=== PATIENT | female | born 1990 | race Two or more races ===

== ENCOUNTER 2017-06-12 12:32 | Emergency (ER) | payer MEDICAID, OTHER ==
--- NOTE | 2017-06-12 13:09 | EDPHY ---
H & P Stated Complaint: 6 wks HCG, Abd pain Time Seen by Provider: 06/12/17 12:57 HPI/ROS: CHIEF COMPLAINT: , vaginal bleeding and cramping HISTORY OF PRESENT ILLNESS: 26-year-old female SAB1, with last menstrual period 03/30/2017, currently , followed by [facility] complaining of suprapubic cramping and vaginal spotting and passage of clots since this morning. No back or flank pain. No nausea or vomiting. No fever or chills. No trauma. No urinary abnormality. No flu-like symptoms. No dizziness. PRIMARY CARE PROVIDER: [facility] REVIEW OF SYSTEMS: A ten point review of systems was performed and is negative with the exception of the items mentioned in the HPI PAST MEDICAL & SURGICAL HISTORY: SAB1. No IVF history. SOCIAL HISTORY: Nonsmoker PHYSICAL EXAM (Prior to examination, patient consented to physical exam, hands were washed and my usual and customary physical exam procedures followed) 1) GENERAL: Well-developed, well-nourished, alert and oriented. Appears to be in no acute distress. Appears comfortable. Smiling, shakes my hand 2) HEAD: Normocephalic, atraumatic 3) HEENT: Pupils equal, round, reactive to light bilaterally. Sclera anicteric. Nasopharynx, oropharynx, clear, no lesions. 4) NECK: Full range of motion, no meningeal signs. 5) LUNGS: Clear auscultation bilaterally, no wheezes, no rhonchi, no retractions. 6) HEART: Regular rate and rhythm, no murmur, no heave, no gallop. 7) ABDOMEN: No guarding, no rebound, no focal tenderness, negative McBurney's, negative Wallace's, negative Rovsing's, negative peritoneal sign, unable to elicit any abdominal pain on exam. 8) MUSCULOSKELETAL: Moving all extremities, no focal areas of tenderness, no obvious trauma. No peripheral edema or discoloration. 9) BACK: No CVA tenderness, no midline vertebral tenderness, no fluctuance, no step-off, no obvious trauma, no visual or palpable abnormality. 10) SKIN: No rash, no petechiae. 11) Psychiatric: Patient is oriented X 3, there is no agitation. DIFFERENTIAL DIAGNOSIS: In no particular order including but not limited to ectopic , spontaneous , threatened - Personal History LMP (Females 10-55): Current Tetanus/Diphtheria Vaccine: Yes Current Tetanus Diphtheria and Acellular Pertussis (TDAP): Yes - Medical/Surgical History Hx Asthma: No Hx Chronic Respiratory Disease: No Hx Diabetes: No Hx Cardiac Disease: No Hx Renal Disease: No Hx Cirrhosis: No Hx Alcoholism: No Hx HIV/AIDS: No Hx Splenectomy or Spleen Trauma: No Other PMH: PMH: denies - Social History Smoking Status: Never smoked Constitutional: Initial Vital Signs Temperature (C) 37.1 C 06/12/17 12:42 Heart Rate 102 H 06/12/17 12:42 Respiratory Rate 20 06/12/17 12:42 Blood Pressure 120/74 06/12/17 12:42 O2 Sat (%) 98 06/12/17 12:42 Allergies/Adverse Reactions: No Known Allergies Allergy (Unverified 06/19/09 11:44) Home Medications: Medication Instructions Recorded Penicillin VK 06/12/17 Medical Decision Making - Diagnostics Imaging Results: Imaging Impressions Obstetrics Ultrasound 06/12/17 13:05 Impression: Heterogeneous thickening of the endometrium, possibly related to blood products, with no visible intrauterine . Correlation with serial hCG is recommended. Findings discussed with Des Leach PA-C, on June 12, 2017 at 1506. Images reviewed myself ED Course/Re-evaluation: 1:09 p.m.: Will obtain diagnostic studies including serum Rh, ultrasound, urinalysis. Patient currently hemodynamically stable. 1:44 p.m.: Rh positive noted Room 3:30 p.m.: Re-evaluation. Patient hemodynamically stable. Discussed her ultrasound showing no intrauterine . The patient can be discharged at this time with usual customary precautions. Recommended 2 [facility], repeat HCG. Definitely if she develops new or worsening pain, she develops dizziness or any other symptoms she needs to return to the ER for re-evaluation. She feels comfortable being discharged. All questions and concerns addressed by myself. Care of patient under supervision physician Dr Calderón. - Data Points Laboratory Results: Laboratory Results 06/12/17 12:50 06/12/17 12:50 06/12/17 06/12/17 06/12/17 14:27 13:17 12:50 WBC RBC Hgb Hct MCV MCH MCHC RDW Plt Count MPV Neut % (Auto) Lymph % (Auto) Creek % (Auto) Eos % (Auto) Baso % (Auto) Nucleat RBC Rel Count Absolute Neuts (auto) Absolute Lymphs (auto) Absolute Monos (auto) Absolute Eos (auto) Absolute Basos (auto) Absolute Nucleated RBC Immature Gran % Immature Gran # Sodium 141 mEq/L mEq/L (135-145) Potassium 3.7 mEq/L mEq/L (3.5-5.2) Chloride 104 mEq/L mEq/L (97-110) Carbon Dioxide 23 mEq/l mEq/l (22-31) Anion Gap 14 mEq/L mEq/L (8-16) BUN 5 mg/dL L mg/dL (7-23) Creatinine 0.6 mg/dL mg/dL (0.6-1.0) Estimated GFR > 60 Glucose 88 mg/dL mg/dL (70-100) Calcium 9.4 mg/dL mg/dL (8.5-10.4) Beta HCG, Quant 73495.00 mIU/mL H mIU/mL (0.00-4.83) Urine Color RED Urine Appearance TURBID Urine pH TNP Ur Specific [place] TNP Urine Protein TNP Urine Ketones TNP Urine Blood TNP Urine Nitrate TNP Urine Bilirubin TNP Urine Urobilinogen TNP Ur Leukocyte Esterase TNP Urine RBC 50-182 /hpf H /hpf (0-3) Urine WBC 25-50 /hpf H /hpf (0-3) Ur Epithelial Cells NONE SEEN /lpf /lpf (NONE-1+) Urine Mucus 3+ /lpf H /lpf (NONE-1+) Urine Glucose TNP Patient ABO/Rh A POSITIVE 06/12/17 12:50 WBC 9.25 10^3/uL 10^3/uL (3.80-9.50) RBC 4.67 10^6/uL 10^6/uL (4.18-5.33) Hgb 13.9 g/dL g/dL (12.6-16.3) Hct 41.2 % % (38.0-47.0) MCV 88.2 fL fL (81.5-99.8) MCH 29.8 pg pg (27.9-34.1) MCHC 33.7 g/dL g/dL (32.4-36.7) RDW 12.7 % % (11.5-15.2) Plt Count 278 10^3/uL 10^3/uL (150-400) MPV 9.9 fL fL (8.7-11.7) Neut % (Auto) 71.0 % % (39.3-74.2) Lymph % (Auto) 20.8 % % (15.0-45.0) Creek % (Auto) 7.0 % % (4.5-13.0) Eos % (Auto) 0.6 % % (0.6-7.6) Baso % (Auto) 0.2 % L % (0.3-1.7) Nucleat RBC Rel Count 0.0 % % (0.0-0.2) Absolute Neuts (auto) 6.56 10^3/uL H 10^3/uL (1.70-6.50) Absolute Lymphs (auto) 1.92 10^3/uL 10^3/uL (1.00-3.00) Absolute Monos (auto) 0.65 10^3/uL 10^3/uL (0.30-0.80) Absolute Eos (auto) 0.06 10^3/uL 10^3/uL (0.03-0.40) Absolute Basos (auto) 0.02 10^3/uL 10^3/uL (0.02-0.10) Absolute Nucleated RBC 0.00 10^3/uL 10^3/uL (0-0.01) Immature Gran % 0.4 % % (0.0-1.1) Immature Gran # 0.04 10^3/uL 10^3/uL (0.00-0.10) Sodium Potassium Chloride Carbon Dioxide Anion Gap BUN Creatinine Estimated GFR Glucose Calcium Beta HCG, Quant Urine Color Urine Appearance Urine pH Ur Specific [place] Urine Protein Urine Ketones Urine Blood Urine Nitrate Urine Bilirubin Urine Urobilinogen Ur Leukocyte Esterase Urine RBC Urine WBC Ur Epithelial Cells Urine Mucus Urine Glucose Patient ABO/Rh Medications Given: Discontinued Medications Morphine Sulfate (Morphine) 4 mg IVP EDNOW ONE Stop: 06/12/17 13:20 Last Admin: 06/12/17 13:23 Dose: 4 mg Departure - Departure Disposition: Home, Routine, Self-Care Clinical Impression: Threatened Condition: Good Instructions: Threatened Miscarriage (ED) Additional Instructions: Return to the ER if you develop new or worsening pain, if you develop fevers, if you develop back pain , if you develop dizziness, or any other symptoms that concern you. Referrals: Jaky Bailey MD [Primary Care Provider] - 06/14/17
[2017-06-12 13:19] LABS: PLATELET COUNT 278 10^3/uL (150-400)
[2017-06-12 15:44] VITALS: BP 109/77
== END 2017-06-12 15:43 | disposition home or self-care (01) ==
DX: O20.0 Threatened abortion (principal); Z3A.01 Less than 8 weeks gestation of pregnancy
CPT/HCPCS: 96374; J2270

== ENCOUNTER 2017-11-21 15:42 | Emergency (ER) | payer OTHER ==
--- NOTE | 2017-11-21 16:18 | EDPHY ---
H & P Time Seen by Provider: 11/21/17 16:03 HPI/ROS: HPI 6 weeks . Vaginal bleeding. 27-year-old female G5, P2, A2 at an estimated 6 weeks. Reports vaginal spotting starting 2 hr prior to arrival. She describes having some pelvic pressure but no pain. Denies any urinary complaints. No history of trauma. No fever. ROS: Constitutional: No fever, no chills. No weakness. Respiratory: No cough. No shortness of breath. Cardiac: No chest pain, no palpitations. Gastrointestinal: No abdominal pain, no vomiting, no diarrhea. As above. Genitourinary: No hematuria. No dysuria or increased frequency with urination. As above. No vaginal discharge. Musculoskeletal: No back pain. No neck pain. No myalgias or arthralgias. Skin: No rashes. Neurological: No headache. No focal weakness or altered sensation. Past medical history: 2 previous spontaneous abortions. Social history: Nonsmoker. Here by herself. No alcohol. Physical Exam: General Appearance: Alert, no distress. This patient is responding to questions appropriately and in full sentences. This patient appears well- hydrated and well-nourished. Eyes: Pupils equal and round no pallor or injection. No lid edema, erythema or injection. Respiratory: There are no retractions, lungs are clear to auscultation with good air movement bilaterally. Cardiovascular: Regular rate and rhythm. No murmur. Gastrointestinal: Abdomen is soft and nontender, no masses, bowel sounds normal. No focal tenderness at McBurney's point. No Wallace sign. Neurological: Motor sensory function is grossly intact. Cranial nerves are normal. Gait is normal. Skin: Warm and dry, no rashes. Musculoskeletal: No CVA tenderness on palpation bilaterally. Extremities are symmetrical. All joints range without pain or impingement. Psychiatric: No agitation. No depression. Database: EKG: Imaging: Pelvic ultrasound: The ovaries are unremarkable. There is a 6 week 3 day IUP heart rate 119. No free fluid noted. pole seen. Results were discussed with staff radiologist Dr. Des Nielson. Procedures: Emergency department course: Triage vital signs reviewed and are normal. Pelvic ultrasound to be obtained shortly. 5:00 p.m., the patient was re-evaluated. She has not had any vaginal bleeding while in the emergency department. Results of her ultrasound and emergency department workup and diagnosis of threatened miscarriage discussed with her. Her vital signs have been stable. She feels comfortable going home and I feel she is safe for discharge with precautions. Follow-up discussed with her in detail. Return to emergency department precautions reviewed. All of her questions were answered. She was discharged from the emergency department in good condition. Differential Diagnosis: The differential diagnosis on this patient includes but is not limited to threatened . Ectopic , completed unlikely. This represents a partial list of diagnoses considered. These considerations are based on history, physical exam, past history, reassessment and diagnostic testing. Smoking Status: Never smoked Constitutional: Initial Vital Signs Temperature (C) 37.2 C 11/21/17 16:00 Heart Rate 88 11/21/17 16:00 Respiratory Rate 16 11/21/17 16:00 Blood Pressure 114/75 11/21/17 16:00 O2 Sat (%) 99 11/21/17 16:00 O2 Delivery Mode Room Air Allergies/Adverse Reactions: No Known Allergies Allergy (Verified 11/21/17 16:00) Home Medications: Medication Instructions Recorded Penicillin VK 06/12/17 Medical Decision Making - Data Points Laboratory Results: Laboratory Results 11/21/17 16:15 Departure - Departure Disposition: Home, Routine, Self-Care Clinical Impression: Threatened miscarriage Condition: Good Instructions: Threatened Miscarriage (ED) Additional Instructions: Read and follow provided instructions. Follow-up with your primary care physician or OBGYN in 1-2 days for re- evaluation. Return to the emergency department for return of bleeding, pain, lightheadedness or other serious concerns. Referrals: Jaky Bailey MD [Primary Care Provider] - As per Instructions
[2017-11-21 16:25] LABS: PLATELET COUNT 276 10^3/uL (150-400)
[2017-11-21 17:44] VITALS: BP 123/80
== END 2017-11-21 17:30 | disposition home or self-care (01) ==
DX: O20.0 Threatened abortion (principal); Z3A.01 Less than 8 weeks gestation of pregnancy

== ENCOUNTER → 2018-03-07 | Outpatient (CLI) | payer OTHER | LOC: FIMAGING 11:37 | PROC: 0UJD8ZZ Inspection of Uterus and Cervix, Via Natural or Artificial Opening Endoscopic (ICD-10-PCS; principal; 2018-03-07) | DX: N96 Recurrent pregnancy loss (principal) ==